=== PATIENT | male | born 1985 | race Caucasian/White ===

== ENCOUNTER 2016-12-21 19:59 | Emergency (ER) | payer OTHER ==
[~2016-12-21] VITALS: Ht 188 cm; Wt 149.7 kg
[2016-12-21 20:45] VITALS: BP 134/80
[2016-12-21 21:00] LABS: BASOPHILS % (AUTO) 2.3 % (0.0-2.0); EOSINOPHILS % (AUTO) 1.6 % (0.0-3.0); LYMPHOCYTES % (AUTO) 17.8 % (20.0-45.0); MEAN CORPUSCULAR HEMOGLOBIN 27.9 PG (27.0-31.0); MEAN CORPUSCULAR HGB CONC 32.5 G/DL (32.0-36.0); MEAN CORPUSCULAR VOLUME 86 FL (80-99); MEAN PLATELET VOLUME 10.7 FL (6.5-10.1); MONOCYTES % (AUTO) 16.4 % (1.0-10.0); NEUTROPHILS % (AUTO) 61.9 % (45.0-75.0); PLATELET COUNT 184 K/UL (150-450); RED CELL DISTRIBUTION WIDTH 12.8 % (11.6-14.8); WHITE BLOOD COUNT 7.1 K/UL (4.8-10.8)
[2016-12-21 21:13] LABS: ALANINE AMINOTRANSFERASE 39 U/L (3-41); ALBUMIN/GLOBULIN RATIO 1.3 (1.0-2.7); ANION GAP 18 (5-15); ASPARTATE AMINO TRANSFERASE 24 U/L (5-40); CARBON DIOXIDE 26 mEQ/L (20-30); CHLORIDE 96 mEQ/L (98-107); CREATININE 1.1 mg/dL (0.7-1.2); GLOMERULAR FILTRATION RATE > 60 mL/min (>60); HEMOLYSIS 9; POTASSIUM 3.8 mEQ/L (3.4-4.9); SODIUM 140 mEQ/L (135-145); TOTAL PROTEIN 7.6 g/dL (6.6-8.7)
[2016-12-21 21:17] LABS: INR 1.1 (0.9-1.1); PROTHROMBIN TIME 10.7 SEC (9.30-11.50)
[2016-12-21 21:21] LABS: APPEARANCE,URINE CLEAR; KETONES,URINE NEGATIVE (NEGATIVE); LEUKOCYTE ESTERASE ,URINE NEGATIVE (NEGATIVE); NITRITE,URINE NEGATIVE (NEGATIVE); PH,URINE 5 (4.5-8.0); PROTEIN,URINE 1+ (NEGATIVE); UROBILINOGEN,URINE NORMAL MG/DL (0.0-1.0)
[2016-12-21 21:30] LABS: BACTERIA,URINE FEW /HPF; RBC,URINE 0-2 /HPF (0 - 0); WBC,URINE 0-2 /HPF (0 - 0)
[2016-12-21] MEDS ORDERED: TRAMADOL HCL50 MG ORAL (22:34)
[2016-12-21] MEDS ORDERED: CLINDAMYCIN HC150 MG ORAL (22:34)
[2016-12-21 23:20] VITALS: BP 134/80
[2016-12-22] MEDS ORDERED: Clindamycin 150mg cap ORAL SCH
--- NOTE | 2016-12-22 04:38 | Emergency Room Report ---
History of Present Illness General Chief Complaint: Edema Source: Patient, Family Member Present Illness HPI Patient presents with 2 days of swelling in R side of face. Took advil with relief of pain. Denies pain to RN, but reports pain 5/10 to me. Pressure and aching R cheek, some radiation towards ear and neck. No fever, chills. No problems eating. No tooth pain. No headache. No rashes. Had MMR vaccination when young. No testicle pain or dysuria. No NVD, dysuria, extremity pain, sore throat, change hearing. Allergies: Coded Allergies: No Known Allergies (Unverified , 12/21/16) Patient History Past Medical History: see triage record Social History: Denies: smoking Social History Narrative Reviewed Nursing Documentation: PMH: Agreed, PSxH: Agreed Nursing Documentation-PMH Past Medical History: No Stated History Review of Systems All Other Systems: negative except mentioned in HPI Physical Exam Vital Signs Date Time Temp Pulse Resp B/P Pulse Ox O2 Delivery O2 Flow Rate FiO2 12/21/16 20:25 97.2 96 17 134/80 95 Room Air Sp02 EP Interpretation: reviewed, normal General Appearance: well appearing, no apparent distress, GCS 15 Head: normocephalic Eyes: bilateral eye PERRL, bilateral eye normal inspection ENT: hearing grossly normal, no angioedema, normal voice, uvula midline, other - R parotid enlargement and swelling Neck: full range of motion, supple, no meningismus Respiratory: lungs clear, normal breath sounds Cardiovascular #1: regular rate, rhythm Cardiovascular #2: 2+ radial (R) Gastrointestinal: normal inspection, normal bowel sounds, non tender, no mass, non-distended Musculoskeletal: back normal, gait/station normal, normal range of motion Neurologic: alert, oriented x3, grossly normal - without facial numbness or weakness Psychiatric: mood/affect normal Skin: normal color, well hydrated, other - sl erythema front of area of swelling. No fluctuance. Lymphatic: adenopathy - minimal R anterior chain neck Medical Decision Making Diagnostic Impression: Primary Impression: Acute parotitis ER Course Patient presents with R parotid enlargement and pain. DDx: parotitis, parotid stone, cellulitis, dental abscess, mumps amongst others. Urgent evaluation with labs and CT. Patient declines pain medicine at this time. CT with parotid enlargement without abscess or stone/obstruction. Labs unremarkable. Sent mumps titers. Antibiotics begun. Has appointment with PMD and ENT tomorrow. Provided with CT disk and results. Patient stable for outpatient observation and treatment. Laboratory Tests Test 12/21/16 20:44 12/21/16 21:04 White Blood Count 7.1 K/UL (4.8-10.8) Red Blood Count 5.60 M/UL (4.70-6.10) Hemoglobin 15.6 G/DL (14.2-18.0) Hematocrit 48.0 % (42.0-52.0) Mean Corpuscular Volume 86 FL (80-99) Mean Corpuscular Hemoglobin 27.9 PG (27.0-31.0) Mean Corpuscular Hemoglobin Concent 32.5 G/DL (32.0-36.0) Red Cell Distribution Width 12.8 % (11.6-14.8) Platelet Count 184 K/UL (150-450) Mean Platelet Volume 10.7 FL (6.5-10.1) H Neutrophils (%) (Auto) 61.9 % (45.0-75.0) Lymphocytes (%) (Auto) 17.8 % (20.0-45.0) L Monocytes (%) (Auto) 16.4 % (1.0-10.0) H Eosinophils (%) (Auto) 1.6 % (0.0-3.0) Basophils (%) (Auto) 2.3 % (0.0-2.0) H Prothrombin Time 10.7 SEC (9.30-11.50) Prothrombin Time INR 1.1 (0.9-1.1) PTT 28 SEC (23-33) Sodium Level 140 mEQ/L (135-145) Potassium Level 3.8 mEQ/L (3.4-4.9) Chloride Level 96 mEQ/L (98-107) L Carbon Dioxide Level 26 mEQ/L (20-30) Anion Gap 18 (5-15) H Blood Urea Nitrogen 12 mg/dL (7-23) Creatinine 1.1 mg/dL (0.7-1.2) Estimate Glomerular Filtration Rate > 60 mL/min (>60) Glucose Level 97 mg/dL (74-106) Lactic Acid Level 1.10 mmol/L (0.66-2.22) Calcium Level 10.0 mg/dL (8.6-10.2) Total Bilirubin 0.3 mg/dL (0.0-1.2) Aspartate Amino Transferase (AST) 24 U/L (5-40) Alanine Aminotransferase (ALT) 39 U/L (3-41) Alkaline Phosphatase 56 U/L (40-129) Total Creatine Kinase 251 U/L (38-174) H Total Protein 7.6 g/dL (6.6-8.7) Albumin 4.4 g/dL (3.5-5.2) Globulin 3.2 g/dL Albumin/Globulin Ratio 1.3 (1.0-2.7) Mumps Virus IgG Antibody Pending Urine Color Yellow Urine Appearance Clear Urine pH 5 (4.5-8.0) Urine Specific [place] 1.020 (1.005-1.035) Urine Protein 1+ (NEGATIVE) H Urine Glucose (UA) Negative (NEGATIVE) Urine Ketones Negative (NEGATIVE) Urine Occult Blood 2+ (NEGATIVE) H Urine Nitrite Negative (NEGATIVE) Urine Bilirubin Negative (NEGATIVE) Urine Urobilinogen Normal MG/DL (0.0-1.0) Urine Leukocyte Esterase Negative (NEGATIVE) Urine RBC 0-2 /HPF (0 - 0) H Urine WBC 0-2 /HPF (0 - 0) Urine Squamous Epithelial Cells None /LPF (NONE/OCC) Urine Bacteria Few /HPF (NONE) CT/MRI/US Diagnostic Results CT/MRI/US Diagnostic Results : Imaging Test Ordered: maxillofacial CT Impression parotid stranding, no stone or abscess Last Vital Signs Date Time Temp Pulse Resp B/P Pulse Ox O2 Delivery O2 Flow Rate FiO2 12/21/16 23:20 97.2 78 17 134/80 95 Room Air Status: improved Disposition: HOME, SELF-CARE Condition: Improved Scripts Tramadol Hcl* (ULTRAM*) 50 Mg Tablet 50 MG ORAL Q6H Y for For Pain, #10 TAB 0 Refills Prov: Keven Mccormack M.D. 12/21/16 Clindamycin Hcl* (CLINDAMYCIN HCL*) 150 Mg Capsule 300 MG ORAL FOUR TIMES A DAY, #28 CAP Prov: Keven Mccormack M.D. 12/21/16 Referrals: NOT CHOSEN [facility]/,REFERRING (PCP) Patient Instructions: Parotitis Additional Instructions: Follow up with your MD and the ENT specialist. OK to take tylenol or advil. Keven Mccormack M.D. Dec 22, 2016 04:38
--- NOTE | 2016-12-23 12:56 | Diagnostic Imaging Report ---
Indications: PAIN, right parotid swelling Technique: Spiral images obtained through the facial bones. IV administration nonionic contrast. Multiplanar reconstructions were generated.Total dose length product 63 mGycm. CTDIvol(s) 20mGy Comparison: None Findings: The right parotid glands is enlarged, and demonstrates increased attenuation and enhancement. There is also infiltration of the subcutaneous fat superficial and anterior to the right parotid gland. No definite calculi or ductal dilatation demonstrated. There are prominent but not frankly enlarged lymph nodes adjacent to the parotid the left parotid gland is unremarkable. The bilateral submandibular glands are unremarkable bilateral cervical lymph nodes are abundant, prominent, but not frankly enlarged. A upper airway is unremarkable. The dentition is intact. The bones are intact. There is a mucous retention cyst versus polyp within the left maxillary sinus. The remaining sinuses are clear. The included intracranial structures are unremarkable. The orbits are unremarkable. Impression: Diffusely enlarged and increased attenuating right parotid gland, consistent with right parotitis. Prominent surrounding lymph nodes as well as generalized prominent cervical nodes are likely reactive. Negative for evidence of stone, duct dilatation, mass, or abscess Left maxillary sinus polyp versus mucous retention cyst This agrees with the preliminary interpretation provided overnight by Dr. Ash The CT scanner at [facility] is accredited by the [employer] and the scans are performed using protocols designed to limit radiation exposure to as low as reasonably achievable to attain images of sufficient resolution adequate for diagnostic evaluation.
== END 2016-12-21 22:55 | disposition home or self-care (01) ==
LOC: EMR 20:30
DX: K11.20 Sialoadenitis, unspecified (principal)
CPT/HCPCS: 36415; 70487; 80053; 81003; 82550; 83605; 85025; 85610; 85730; 86171; 99284; Q9967